=== PATIENT | male | born 1985 | race Hispanic/Latino ===

== ENCOUNTER 2019-12-14 07:17 | Outpatient (CLI) | payer OTHER ==
--- NOTE | 2019-12-14 09:00 | RAD ---
CERVICAL SPINE 3 VIEWS: Date: 12/14/2019 HISTORY: Neck pain. FINDINGS: Cervical vertebra maintain normal height and alignment. The disc spaces are preserved. Mild degenerat katherin changes are noted with anterior osteophytes at C4-5 and C5-6. Very mild posterior spondylosis at C4-5 and C5-6. IMPRESSION: Mild degenerative change. POS: AGW
== END 2019-12-14 07:18 | disposition home or self-care (01) ==
LOC: BICRAD 07:17
PROVIDERS: ATTEND Family Medicine
DX: M54.2 Cervicalgia (principal); M47.812 Spondylosis without myelopathy or radiculopathy, cervical region
CPT/HCPCS: 72040

== ENCOUNTER 2020-03-21 15:10 | Outpatient (CLI) | payer OTHER ==
--- NOTE | 2020-03-21 16:50 | MRI ---
MRI cervical spine noncontrast: 03/21/2020 HISTORY: 34-year-old male "M 50.90, cervical neck pain with evidence of disc disease" COMPARISON: None FINDINGS: No Chiari I malformation. Cervical spinal cord is normal in size and signal. Vertebral body heights and disc spaces are maintained. No high-grade facet DJD at any level. C2-3: Normal. C3-4: Normal. C4-5: Mild central spinal canal stenosis. Mild right neural foraminal stenosis. Mild to moderate left neural foraminal stenosis. Small bilateral uncinate process osteophytes. C5-6: Small central disc protrusion. Mild central spinal canal stenosis. Small bilateral uncinate pro cess osteophytes. Mild to moderate right and moderate left neural foraminal stenosis. C6-7: Shallow, broad-based disc protrusion. No significant central spinal canal stenosis. Small bilat eral uncinate process osteophytes, left larger than right. Mild right and moderate-severe left neural foraminal stenosis. C7-T1: Mild bilateral facet DJD. No central or neural foraminal stenosis. IMPRESSION: 1.) Mild cervical spondylosis. 2) multilevel, mostly low-grade neural foraminal stenosis. Greatest neural foraminal stenosis is on t he left at C6-7.
== END 2020-03-21 15:11 | disposition home or self-care (01) ==
LOC: BICMRI 15:10
PROVIDERS: ATTEND Family Medicine
DX: M50.90 Cervical disc disorder, unspecified, unspecified cervical region (principal); M47.812 Spondylosis without myelopathy or radiculopathy, cervical region; M48.02 Spinal stenosis, cervical region
CPT/HCPCS: 72141